=== PATIENT | male | born 1965 | race Caucasian/White ===

== ENCOUNTER 2016-08-10 11:34 | Emergency (ER) | payer SELFPAY ==
[2016-08-10] MEDS ORDERED: CEPHALEXIN 500 MG CAPSULE PO ONE (12:02)
[2016-08-10] MEDS ORDERED: LIDOCAINE 1% INJ-PF (10 MG/ML) 30 ML SDV INJ ONE (12:02)
[2016-08-10] MEDS ORDERED: TRAMADOL HCL 50 MG TABLET PO ONE (12:02)
--- NOTE | 2016-08-10 12:09 | ER Document Report ---
ED Wound - General Chief Complaint: Laceration Stated Complaint: WRIST LACERATION Notes: Patient is a 51-year-old male who presents emergency Department with complaint of right wrist wound. 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 Admits to minimal bleeding with minor pain with finger flexion but otherwise has full range of motion of his hand and forearm. Denies any crush injury. Denies any pain in the forearm. Tetanus is up-to-date as of 3 years ago. REVIEW OF SYSTEMS: CONSTITUTIONAL : Denies fever, chills, or sweats. Denies recent illness. EENT: Denies eye, ear, throat, or mouth pain or symptoms. Denies nasal or sinus congestion or discharge. Denies throat, tongue, or mouth swelling or difficulty swallowing. CARDIOVASCULAR: Denies chest pain. Denies palpitations or racing or irregular heart beat. Denies ankle edema. RESPIRATORY: Denies cough, cold, or chest congestion. Denies shortness of breath, difficulty breathing, or wheezing. GASTROINTESTINAL: Denies abdominal pain or distention. Denies nausea, vomiting , or diarrhea. Denies blood in vomitus, stools, or per rectum. Denies black, tarry stools. Denies constipation. GENITOURINARY: Denies difficulty urinating, painful urination, burning, frequency, blood in urine, or discharge. FEMALE GENITOURINARY: Denies vaginal bleeding, heavy or abnormal periods, irregular periods. Denies vaginal discharge or odor. MUSCULOSKELETAL: Denies any muscle spasms, difficulty walking, extremity pain SKIN: Denies rash, lesions or sores. HEMATOLOGIC : Denies easy bruising or bleeding. LYMPHATIC: Denies swollen, enlarged glands. NEUROLOGICAL: Denies confusion or altered mental status. Denies passing out or loss of consciousness. Denies dizziness or lightheadedness. Denies headache. Denies weakness or paralysis or loss of use of either side. Denies problems with gait or speech. Denies sensory loss, numbness, or tingling. Denies seizures. PSYCHIATRIC: Denies anxiety or stress. Denies depression, suicidal ideation, or homicidal ideation. ALL OTHER SYSTEMS REVIEWED AND NEGATIVE. Dictation was performed using [employer] voice recognition software Patient's primary care physician is [facility] in [facility] TRAVEL OUTSIDE OF THE [place]. IN LAST 30 DAYS: No - Related Data Allergies/Adverse Reactions: No Known Allergies Allergy (Verified 08/10/16 12:09) Home Medications: Current Home Medications Albuterol Sulfate [Proair HFA] 1 - 2 puff IH Q4 PRN 08/10/16 [History] Ipratropium/Albuterol Sulfate [Combivent Inhaler] 14.7 gm IH BID 08/10/16 [ History] Lisinopril [Prinivil] 20 mg PO DAILY 08/10/16 [History] Past Medical History - Social History Smoking Status: Current Every Day Smoker Chew tobacco use (# tins/day): No Frequency of alcohol use: Occasional Family History: Reviewed & Not Pertinent Patient has suicidal ideation: No Patient has homicidal ideation: No - Past Medical History Cardiac Medical History: Reports: Hx Hypertension Pulmonary Medical History: Reports: Hx COPD Renal/ Medical History: Denies: Hx Peritoneal Dialysis - Immunizations Hx Diphtheria, Pertussis, Tetanus Vaccination: Yes - utd Physical Exam - Vital signs Vitals: Temp Pulse Resp BP Pulse Ox 98.2 F 70 20 122/86 H 99 08/10/16 11:39 08/10/16 11:39 08/10/16 11:39 08/10/16 11:39 08/10/16 11:39 - Notes Notes: PHYSICAL EXAM GENERAL: Alert, interacts well. HEAD: Normocephalic, atraumatic. LUNGS: Clear to auscultation bilaterally, no wheezes, rales, or rhonchi. No respiratory distress. HEART: Regular rate and rhythm. No murmurs, gallops, or rubs. ABDOMEN: Soft, nondistended, nontender. No guarding, rebound, or rigidity.. Bowel sounds present in all 4 quadrants. EXTREMITIES: Moves all 4 extremities spontaneously. No edema, radial and dorsalis pedis pulses 2/4 bilaterally. No cyanosis. NEUROLOGICAL: Alert and oriented x4. Normal speech. PSYCH: Normal affect, normal mood. - Skin Skin Temperature: Warm Skin Moisture: Dry Skin Color: Normal Skin Turgor: Elastic Skin irregularity: Laceration - 3 cm Location of irregularity: Extremities Character of irregularity: Linear Course - Re-evaluation Re-evalutation: 08/10/16 13:33 Patient is neurovascularly intact, no acute bleeding, closed with 4-0 nylon after irrigation Betadine and saline. Dry sterile dressing was applied. Follow -up with primary care in 10-14 days for suture removal - Vital Signs Vital signs: Temp Pulse Resp BP Pulse Ox 98.1 F 72 18 122/82 99 08/10/16 12:53 08/10/16 12:53 08/10/16 12:53 08/10/16 12:53 08/10/16 12:53 Procedures - Laceration/Wound Repair Right Wrist Wound length (cm): 3 Wound's Depth, Shape: Superficial, Linear Laceration pre-procedure: Sterile PPE donned, Betadine prep applied, Sterile drapes applied Anesthetic type: 1% Lidocaine Volume Anesthetic (mLs): 3 Wound explored: Clean, No foreign body removed Irrigated w/ Saline (mLs): 50 Wound Debrided: Minimal Wound Repaired With: Sutures Suture Size/Type: 4:0, Nylon Number of Sutures: 4 Layer Closure?: No Post-procedure wound care: Sterile dressing applied Post-procedure NV exam normal: Yes Complications: No Discharge - Discharge Clinical Impression: Laceration Condition: Good Disposition: HOME, SELF-CARE Instructions: Antibiotic Ointment Protection ([facility]), Soap Cleansing ([facility]), Prophylactic Antibiotic ([facility]), Laceration Care ([facility]) Additional Instructions: Please see your family care physician in 10-14 days to have your stitches removed Prescriptions: Cephalexin Monohydrate [Keflex 500 mg Capsule] 500 mg PO BID 7 Days Ibuprofen [Motrin 800 mg Tablet] 800 mg PO Q8H PRN #30 tab PRN Reason:
[2016-08-10 12:54] VITALS: BP 122/82
== END 2016-08-10 12:54 | disposition home or self-care (01) ==
LOC: ER 11:34
PROC: 0HQDXZZ Repair Right Lower Arm Skin, External Approach (ICD-10-PCS; principal; 2016-08-10)
DX: S61.511A Laceration without foreign body of right wrist, initial encounter (principal); W45.8XXA Other foreign body or object entering through skin, initial encounter; Y93.H3 Activity, building and construction; Y99.0 Civilian activity done for income or pay; I10 Essential (primary) hypertension; J44.9 Chronic obstructive pulmonary disease, unspecified; F17.200 Nicotine dependence, unspecified, uncomplicated
CPT/HCPCS: 99282; 12002; J3490

== ENCOUNTER → 2017-11-08 | Outpatient (CLI) | payer OTHER ==
--- NOTE | 2017-11-08 15:47 | RADIOLOGY REPORT (SQ) ---
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 TECHNIQUE: CT scan of the chest performed using helical scanning technique with dynamic intravenous contrast injection. Images reviewed with lung, soft tissue and bone windows. Reconstructed coronal and sagittal MPR images reviewed. Additional 3 dimensional post-processing performed to develop Maximal Intensity Projection images (PA P). All images stored on PACS. All CT scanners at this facility use dose modulation, iterative reconstruction, and/or weight based d osing when appropriate to reduce radiation dose to as low as reasonably achievable (ALARA). [facility]: Dose Right [facility]: CareDose [facility]: Dose Right [facility]: Teradose 4D [facility]: Geosho CONTRAST TYPE AND DOSE: contrast/concentration: Isovue 370.00 mg/ml; Total Contrast Delivered: 70.0 ml; Total Saline Delivered: 97.0 ml Contrast bolus optimized for the pulmonary arteries. Not diagnostic for the aorta. RENAL FUNCTION: Creatinine 0.7 RADIATION DOSE: CT Rad equipment meets quality standard of care and radiation dose reduction techniq ues were employed. CTDIvol: 11.2 - 15.0 mGy. DLP: 499 mGy-cm. . LIMITATIONS: None. FINDINGS: LUNGS AND PLEURA: No masses, infiltrates, or pneumothorax. No pleural effusions or pleura l calcifications. AORTA AND GREAT VESSELS: No aneurysm. Contrast bolus not optimized for the aorta. HEART: No pericardial effusion. Heavy coronary artery calcifications PULMONARY ARTERIES: No emboli visualized in the main pulmonary arteries or the segmental branches. HILAR AND MEDIASTINAL STRUCTURES: No identified masses or abnormal nodes. HARDWARE: None in the chest. UPPER ABDOMEN: Fatty liver THYROID AND OTHER SOFT TISSUES: No masses. No adenopathy. BONES: No acute or significant finding. 3D MIPS: Confirm above findings. OTHER: No other significant finding. IMPRESSION: The CT angio evidence of acute pulmonary emboli. Heavily calcified left coronary arteries. Fatty liver. COMMENT: Quality ID # [id number]: Final reports with documentation of one or more dose reduction techniques (e.g., Automated exposure control, adjustment of the mA and/or kV according to patient size, use of iterative reconstruction technique) TECHNICAL DOCUMENTATION: JOB ID: [id number]- All Rights Reserved Reading location - IP/workstation name: [email or web address]
== END ==
LOC: RAD 12:19
PROVIDERS: ATTEND Internal Medicine Medical Oncology
DX: E88.09 Other disorders of plasma-protein metabolism, not elsewhere classified (principal); K76.0 Fatty (change of) liver, not elsewhere classified
CPT/HCPCS: 71275; 82565

== ENCOUNTER 2018-10-21 13:00 | Emergency (ER) | payer OTHER ==
[2018-10-21 13:32] VITALS: BP 126/89
[2018-10-21] MEDS ORDERED: ERYTHROMYCIN 0.5% OPH OINT 1 GM UNIT DOSE OU ONE (13:54)
--- NOTE | 2018-10-21 13:55 | ER Document Report ---
HPI - HPI Patient complains to provider of: biLateral eye irritation Time Seen by Provider: 10/21/18 13:43 Onset: Other - 2 weeks Quality of pain: Burning, Other - Itchy Severity: Severe Pain Level: 4 Context: Patient presents emergency department with complaints of bilateral eye irritation for the past 2 weeks. Patient denies wearing contacts. Reports his eyes are so itchy it is driving him crazy. He reports he wakes up in the morning with drainage and his eyes are glued shut. Denies visual changes. Reports he has tried several gjkw-glw-tdvxegv medications without relief of symptoms. Used Visine and Clear Eyes today. Denies other symptoms such as fever vomiting diarrhea. Reports symptoms last all day. He is not sure if the symptoms started in one eye moved to both eyes. Denies pain to the eyes. Associated Symptoms: None Exacerbated by: Denies Relieved by: Denies Similar symptoms previously: No Recently seen / treated by doctor: No Past Medical History - General Information source: Patient - Social History Smoking Status: Current Every Day Smoker Cigarette use (# per day): Yes Frequency of alcohol use: None Drug Abuse: None Occupation: [employer] Family History: Reviewed & Not Pertinent Patient has suicidal ideation: No Patient has homicidal ideation: No - Past Medical History Cardiac Medical History: Reports: Hx Hypertension Pulmonary Medical History: Reports: Hx COPD Renal/ Medical History: Denies: Hx Peritoneal Dialysis Surgical Hx: Negative - Immunizations Hx Diphtheria, Pertussis, Tetanus Vaccination: Yes - utd Vertical Provider Document - CONSTITUTIONAL Agree With Documented VS: Yes Exam Limitations: No Limitations General Appearance: WD/WN, No Apparent Distress - INFECTION CONTROL TRAVEL OUTSIDE OF THE [place] IN LAST 30 DAYS: No - HEENT HEENT: Atraumatic, Normocephalic, PERRLA. negative: Conjuctival Injection, Pharyngeal Erythema, Tympanic Membrane Red - NECK Neck: Normal Inspection, Supple. negative: Lymphadenopathy-Left, Lymphadenopathy-Right - RESPIRATORY Respiratory: No Respiratory Distress - MUSCULOSKELETAL/EXTREMETIES Musculoskeletal/Extremeties: IVAN OSBORN - NEURO Level of Consciousness: Awake, Alert, Appropriate Motor/Sensory: No Motor Deficit - DERM Integumentary: Warm, Dry Course - Re-evaluation Re-evalutation: 10/21/18 14:58 Possible patient has bacterial conjunctivitis based on his symptoms. Possibly started in one eye and moved to both eyes. will treat conservatively with erythromycin. Patient was instructed on signs and symptoms of allergic reaction to the ointment. He was instructed on the importance of follow-up with tie worker for recheck evaluation he verbalized understanding. Dictation of this chart was performed using voice recognition software; therefore, there may be some unintended grammatical errors. - Vital Signs Vital signs: Temp Pulse Resp BP Pulse Ox 98.5 F 105 H 18 126/89 H 93 10/21/18 13:30 10/21/18 13:30 10/21/18 13:30 10/21/18 13:30 10/21/18 13:30 Discharge - Discharge Clinical Impression: Irritation of both eyes Conjunctivitis Qualifiers: Conjunctivitis type: acute Acute conjunctivitis type: unspecified Laterality: bilateral Qualified Code(s): H10.33 - Unspecified acute conjunctivitis, bilateral Condition: Stable Disposition: HOME, SELF-CARE Instructions: Erythromycin ([facility]), Eyedrop Use ([facility]) Additional Instructions: *You have been evaluated for bilateral eye irritation , allergies *Apply eye ointment half-inch ribbon to the bottom lid 3 times a day for the next 4 days. *Take qddm-bhn-spiidcv antihistamine as indicated *Good hand washing *Follow up with an tie worker in 1 week *Return to ED for worsening condition, changes, needs Forms: Return to Work Referrals: IVANA MULLINS MD [ACTIVE STAFF] - Follow up in 1 week
== END 2018-10-21 14:08 | disposition home or self-care (01) ==
LOC: ER 13:00
DX: H10.33 Unspecified acute conjunctivitis, bilateral (principal); I10 Essential (primary) hypertension; J44.9 Chronic obstructive pulmonary disease, unspecified; F17.210 Nicotine dependence, cigarettes, uncomplicated
CPT/HCPCS: 99283

== ENCOUNTER 2019-05-12 09:40 | Emergency (ER) | payer SELFPAY ==
--- NOTE | 2019-05-12 10:21 | ER Document Report ---
ED Medical Screen (RME) - General Chief Complaint: Shoulder Pain Stated Complaint: FALL/RIGHT SHOULDER/ARM PAIN Time Seen by Provider: 05/12/19 10:09 Mode of Arrival: Ambulatory Information source: Patient Notes: Patient reports falling off of a ladder while living a tree 4 days ago. Patient states there may have been a possible loss of consciousness. Patient complains of neck right upper back, right shoulder and right elbow pain. Patient also complains of right rib pain and some shortness of breath. Patient states that he has been taking aspirin every few hours a couple of the time for the last several days as has had persistent pain. Patient reports history of spontaneous pneumothorax in the past. I have greeted and performed a rapid initial assessment of this patient. A co mprehensive ED assessment and evaluation of the patient, analysis of test results and completion of the medical decision making process will be conducted by additional ED providers. TRAVEL OUTSIDE OF THE [place] IN LAST 30 DAYS: No - Related Data Allergies/Adverse Reactions: No Known Allergies Allergy (Verified 10/21/18 13:06) Past Medical History - Social History Frequency of alcohol use: None Drug Abuse: None - Past Medical History Cardiac Medical History: Reports: Hx Hypertension Pulmonary Medical History: Reports: Hx COPD Renal/ Medical History: Denies: Hx Peritoneal Dialysis - Immunizations Hx Diphtheria, Pertussis, Tetanus Vaccination: Yes - utd Physical Exam - Vital signs Vitals: Temp Pulse Resp BP Pulse Ox 98.3 F 112 H 18 139/89 H 97 05/12/19 09:44 05/12/19 09:44 05/12/19 09:44 05/12/19 09:44 05/12/19 09:44 - Respiratory Respiratory status: No respiratory distress Chest status: Pain on movement - Right lateral rib tenderness, no obvious ecchymosis, Pain with deep breathing Course - Vital Signs Vital signs: Temp Pulse Resp BP Pulse Ox 98.3 F 112 H 18 139/89 H 97 05/12/19 09:44 05/12/19 09:44 05/12/19 09:44 05/12/19 09:44 05/12/19 09:44
[2019-05-12 11:05] LABS: ABSOLUTE BASOPHILS # (AUTO) 0.1 10^3/uL (0.0-0.2); ABSOLUTE LYMPHOCYTES (AUTO) 0.7 10^3/uL (0.5-4.7); ABSOLUTE MONOCYTES (AUTO) 0.8 10^3/uL (0.1-1.4); ABSOLUTE NEUT (AUTO) 9.1 10^3/uL (1.7-8.2); EOSINOPHILS % (AUTO) 0.1 % (0-6); HEMATOCRIT 42.2 % (37.9-51.0); HEMOGLOBIN 14.9 g/dL (13.5-17.0); LYMPHOCYTES % (AUTO) 6.7 % (13-45); MEAN CORPUSCULAR HEMOGLOBIN 37.8 pg (27.0-33.4); MEAN CORPUSCULAR HGB CONC 35.3 g/dL (32.0-36.0); MEAN CORPUSCULAR VOLUME 107 fl (80-97); MONOCYTES % (AUTO) 7.2 % (3-13); PLATELET COUNT 261 10^3/uL (150-450); RED BLOOD COUNT 3.94 10^6/uL (4.35-5.55); RED CELL DISTRIBUTION WIDTH 14.8 % (11.5-14.0); TOTAL CELLS COUNTED % (AUTO) 100 %; WHITE BLOOD COUNT 10.7 10^3/uL (4.0-10.5)
--- NOTE | 2019-05-12 11:06 | RADIOLOGY REPORT (SQ) ---
EXAM DESCRIPTION: SHOULDER RIGHT 2 OR MORE VIEWS COMPLETED DATE/TIME: 05/12/2019 10:58 am REASON FOR STUDY: fall, r shoulder pain COMPARISON: None. NUMBER OF VIEWS: Three views. TECHNIQUE: Internal rotation, external rotation, and Y view images acquired of the right shoulder. LIMITATIONS: None. FINDINGS: MINERALIZATION: Normal. BONES: No acute fracture. No worrisome bone lesions. JOINTS: No dislocation. Mild acromioclavicular and glenohumeral osteoarthropathy. VISUALIZED LUNGS AND RIBS: No pneumothorax. No rib fracture. SOFT TISSUES: No radiopaque foreign body. OTHER: No other significant finding. IMPRESSION: No evidence of acute bony abnormality of the right shoulder. TECHNICAL DOCUMENTATION: JOB ID: [id number] [employer]- All Rights Reserved Reading location - IP/workstation name: [email or web address]
--- NOTE | 2019-05-12 11:07 | RADIOLOGY REPORT (SQ) ---
EXAM DESCRIPTION: ELBOW RIGHT OVER 2 VIEWS COMPLETED DATE/TIME: 05/12/2019 10:58 am REASON FOR STUDY: fall, r elbow pain COMPARISON: None. NUMBER OF VIEWS: Four views. TECHNIQUE: AP, lateral, and both oblique radiographic images acquired of the right elbow. LIMITATIONS: None. FINDINGS: MINERALIZATION: Normal. BONES: No acute fracture or dislocation. No worrisome bone lesions. JOINT: No effusion. SOFT TISSUES: No soft tissue swelling. No foreign body. OTHER: No other significant finding. IMPRESSION: NEGATIVE STUDY OF THE RIGHT ELBOW. NO RADIOGRAPHIC EVIDENCE OF ACUTE INJURY. TECHNICAL DOCUMENTATION: JOB ID: [id number] [employer]- All Rights Reserved Reading location - IP/workstation name: [email or web address]
--- NOTE | 2019-05-12 11:11 | RADIOLOGY REPORT (SQ) ---
EXAM DESCRIPTION: CHEST 2 VIEWS COMPLETED DATE/TIME: 05/12/2019 10:58 am REASON FOR STUDY: fall, rib pain COMPARISON: 11/08/2017. EXAM PARAMETERS: NUMBER OF VIEWS: two views TECHNIQUE: Digital Frontal and Lateral radiographic views of the chest acquired. RADIATION DOSE: NA LIMITATIONS: none FINDINGS: LUNGS AND PLEURA: Ill-defined right suprahilar and left mid lung opacities. No dense cons olidation. No pleural effusion or pneumothorax. MEDIASTINUM AND HILAR STRUCTURES: Widening of the right paratracheal stripe. HEART AND VASCULAR STRUCTURES: Heart normal size. No evidence for failure. BONES: No acute findings. HARDWARE: None in the chest. OTHER: No other significant finding. IMPRESSION: 1. No pneumothorax. No displaced fracture. 2. Emphysematous change with ill-defined right apical and left mid lung opacities, likely scarring/ fibrosis. Infection is not entirely excluded. TECHNICAL DOCUMENTATION: JOB ID: [id number] [employer]- All Rights Reserved Reading location - IP/workstation name: [email or web address]
--- NOTE | 2019-05-12 11:16 | RADIOLOGY REPORT (SQ) ---
EXAM DESCRIPTION: CT CERVICAL SPINE WITHOUT COMPLETED DATE/TIME: 05/12/2019 10:58 am REASON FOR STUDY: fall, neck pain COMPARISON: 11/08/2017 TECHNIQUE: Axial images acquired through the cervical spine without intravenous contrast. Images re viewed with lung, soft tissue and bone windows. Reconstructed coronal and sagittal MPR images review ed. Images stored on PACS. All CT scanners at this facility use dose modulation, iterative reconstruction, and/or weight based d osing when appropriate to reduce radiation dose to as low as reasonably achievable (ALARA). [facility]: Dose Right [facility]: CareDose [facility]: Dose Right [facility]: Teradose 4D [facility]: Lively RADIATION DOSE: CT Rad equipment meets quality standard of care and radiation dose reduction techniq ues were employed. CTDIvol: 21.4 mGy. DLP: 555 mGy-cm. mGy. LIMITATIONS: None. FINDINGS: ALIGNMENT: Straightening of the normal cervical lordosis, likely positional. MINERALIZATION: Normal. VERTEBRAL BODIES: No fractures or dislocation. DISCS: Disc space is relatively well-maintained. Mild multilevel endplate change with disc osteophyt e complexes and osteophytosis. There is no high-grade osseous canal narrowing. Multilevel disc comp lexes with mild canal stenosis, greatest at C4-5. No high-grade osseous neural foraminal narrowing. FACETS, LATERAL MASSES, POSTERIOR ELEMENTS: No fractures. No dislocation. No acute findings. HARDWARE: None in the spine. VISUALIZED RIBS: No fractures. LUNG APICES AND SOFT TISSUES: Biapical he was emphysema. Nodular right apical opacities with anterio r pleural thickening, partially evaluated. OTHER: Carotid atherosclerosis. IMPRESSION: 1. No evidence of acute bony abnormality of the cervical spine. 2. Partially evaluated nodular right apical opacities and pleural thickening possibly scarring altho ugh underlying lesion is not entirely excluded. Nonemergent noncontrast chest CT should be considere d for further characterization. TECHNICAL DOCUMENTATION: JOB ID: [id number] Quality ID # [id number]: Final reports with documentation of one or more dose reduction techniques (e.g., Au tomated exposure control, adjustment of the mA and/or kV according to patient size, use of iterative reconstruction technique) 2010 [employer], [place]- All Rights Reserved Reading location - IP/workstation name: [email or web address]
[2019-05-12 11:33] LABS: ALBUMIN 3.8 g/dL (3.5-5.0); ALKALINE PHOSPHATASE 133 U/L (38-126); ANION GAP 13 (5-19); ASPARTATE AMINO TRANSFERASE 48 U/L (17-59); BILIRUBIN,DIRECT 0.5 mg/dL (0.0-0.4); BILIRUBIN,TOTAL 0.5 mg/dL (0.2-1.3); BLOOD UREA NITROGEN 12 mg/dL (7-20); CARBON DIOXIDE 22 mmol/L (22-30); CHLORIDE 100 mmol/L (98-107); GLUCOSE 100 mg/dL (75-110); TOTAL PROTEIN 7.9 g/dL (6.3-8.2)
[2019-05-12 11:35] LABS: ACETAMINOPHEN < 10 ug/mL (10-30)
--- NOTE | 2019-05-12 11:46 | ER Document Report ---
ED General - General Chief Complaint: Shoulder Pain Stated Complaint: FALL/RIGHT SHOULDER/ARM PAIN Time Seen by Provider: 05/12/19 10:09 Mode of Arrival: Ambulatory Notes: 53-year-old male smoker presents with right axilla chest and shoulder pain after a fall 3 days ago off of a ladder about 4 feet. He hit his axillary region on a fixed object. Mild shortness of breath. Cough, baseline unchanged. Has been taking lots of aspirin but denies tinnitus or dizziness. He does not have a headache and his neck hurts mildly. No neuro deficits or symptoms. Seen at triage studies ordered. Mild right elbow pain. TRAVEL OUTSIDE OF THE [place] IN LAST 30 DAYS: No - Related Data Allergies/Adverse Reactions: No Known Allergies Allergy (Verified 10/21/18 13:06) Past Medical History - General Information source: Patient - Social History Smoking Status: Current Every Day Smoker Frequency of alcohol use: None Drug Abuse: None Family History: Reviewed & Not Pertinent Patient has suicidal ideation: No Patient has homicidal ideation: No - Past Medical History Cardiac Medical History: Reports: Hx Hypertension Pulmonary Medical History: Reports: Hx COPD Renal/ Medical History: Denies: Hx Peritoneal Dialysis - Immunizations Hx Diphtheria, Pertussis, Tetanus Vaccination: Yes - utd Review of Systems - Review of Systems Notes: REVIEW OF SYSTEMS GEN: Denies fever, chills, weight loss ENT: Denies sore throat, nasal discharge, ear pain EYES: Denies blurry vision, eye pain, discharge CV: Right chest pain RESP: Denies cough, shortness of breath, wheezing GI: Denies abdominal pain, nausea, vomiting, diarrhea MSK: Right shoulder pain right upper pain SKIN: Denies rash, skin lesions LYMPH: Denies swollen glands/lymph nodes NEURO: Denies headache, focal weakness or numbness, dizziness PSYCH: Denies depression, suicidal or homicidal ideation PHYSICAL EXAMINATION General: No acute distress, well-nourished Head: Atraumatic, normocephalic ENT: Mouth normal, oropharynx moist, no exudates or tonsillar enlargement Eyes: Conjunctiva normal, pupils equal, lids normal Neck: No JVD, supple, no guarding CVS: Normal rate, regular rhythm, no murmurs. Right axillary chest tenderness without crepitus deformity or step-offs Resp: No resp distress, equal and normal breath sounds bilaterally GI: Nondistended, soft, no tenderness to palpation, no rebound or guarding Ext: No deformities, no edema, normal range of motion in upper and lower ext Back: No CVA or midline TTP Skin: No rash, warm Lymphatic: No lymphadeopathy noted Neuro: Awake, alert. Face symmetric. GCS 15. Physical Exam - Vital signs Vitals: Temp Pulse Resp BP Pulse Ox 98.3 F 112 H 18 139/89 H 97 05/12/19 09:44 05/12/19 09:44 05/12/19 09:44 05/12/19 09:44 05/12/19 09:44 Course - Re-evaluation Re-evalutation: 05/12/19 11:43 Fall from ladder. No bony injuries. X-rays all negative no pneumothorax clinically does not have pneumonia. Patient looks well. I will prescribe Lidoderm ask him to decrease his salicylate intake, [facility] which is elevated, but he has no symptoms and stopping salicylates should fix this. He will be given Lidoderm and Percocet and discharged home. I have discussed with the patient there likely diagnosis, aftercare plan, follow-up plans and my usual and customary return precautions. They verbalized understanding of this. - Vital Signs Vital signs: Temp Pulse Resp BP Pulse Ox 98.3 F 112 H 18 139/89 H 97 05/12/19 09:44 05/12/19 09:44 05/12/19 09:44 05/12/19 09:44 05/12/19 09:44 - Laboratory Result Diagrams: 05/12/19 10:25 05/12/19 10:25 Laboratory results interpreted by me: 05/12/19 05/12/19 10:25 10:25 WBC 10.7 H RBC 3.94 L MCV 107 H MCH 37.8 H RDW 14.8 H Lymph % (Auto) 6.7 L Absolute Neuts (auto) 9.1 H Seg Neutrophils % 85.0 H Sodium 135.0 L Direct Bilirubin 0.5 H Alkaline Phosphatase 133 H Salicylates 38.0 H* Acetaminophen < 10 L - Diagnostic Test Radiology reviewed: Image reviewed, Reports reviewed Discharge - Discharge Clinical Impression: Contusion of right chest wall Qualifiers: Encounter type: initial encounter Qualified Code(s): S20.211A - Contusion of right front wall of thorax, initial encounter Condition: Good Disposition: HOME, SELF-CARE Instructions: Chest Wall Pain ([facility]) Additional Instructions: Please stop taking aspirin. You are taking too much and it can be unhealthy. I am prescribing you a topical pain patch and some narcotic pain medicine for a few days. Prescriptions: Lidocaine [Lidoderm 5% (700 mg) Transdermal Patch] 1 patch TP DAILY #10 adh..patch Oxycodone HCl/Acetaminophen [Percocet 5-325 mg Tablet] 1 tab PO ASDIR PRN #15 tab PRN Reason:
[2019-05-12 12:00] VITALS: BP 125/87
== END 2019-05-12 12:08 | disposition home or self-care (01) ==
LOC: ER 09:40
DX: S20.211A Contusion of right front wall of thorax, initial encounter (principal); M79.621 Pain in right upper arm; M25.511 Pain in right shoulder; M25.521 Pain in right elbow; M54.2 Cervicalgia; W11.XXXA Fall on and from ladder, initial encounter; Y93.89 Activity, other specified; J44.9 Chronic obstructive pulmonary disease, unspecified; R06.02 Shortness of breath; R05 Cough; F17.200 Nicotine dependence, unspecified, uncomplicated; I10 Essential (primary) hypertension
CPT/HCPCS: 36415; 71046; 72125; 80053; 80307; 85025; 99284